=== PATIENT | male | born 1965 | race Hispanic/Latino ===

== ENCOUNTER 2018-01-20 08:54 | Emergency (ER) | payer OTHER ==
[2018-01-20 09:13] VITALS: RESP 18; O2SAT 97
--- NOTE | 2018-01-20 09:41 | ED PDOC ---
Arrival/HPI - General Chief Complaint: Abnormal Skin Integrity Time Seen by Provider: 01/20/18 09:40 Historian: Patient - History of Present Illness Narrative History of Present Illness (Text): 01/20/18 09:19 A 52 year old male, whose past medical history includes hypertension. hyperlipidemia, and sleep apnea, presents to the emergency department complaining of left foot bleeding since this morning. Patient reports he was showering when he notices his left foot suddenly bleeding and the bleeding would not stop. Patient notes left foot was sore and felt some pain to touch prior to bleeding. Patient denies any fever, chills, shortness of breath, chest pain, diarrhea, nausea, vomiting, urinary symptoms, back pain, neck pain , headache, dizziness, or any other complaints. Time/Duration: 4-6 hours (earlier this morning) Symptom Onset: Sudden Activities at Onset: Light Context: Home Past Medical History - Provider Review Nursing Documentation Reviewed: Yes - Cardiac Hx Hypertension: Yes - Pulmonary Hx Respiratory Disorders: No Hx Sleep Apnea: Yes - Neurological Hx Neurological Disorder: Yes Other/Comment: Cyst in the Brain - HEENT Hx HEENT Disorder: No - Endocrine/Metabolic Hx Endocrine Disorders: Yes Hx Diabetes Mellitus Type 2: Yes - Integumentary Other/Comment: Melanoma (Right Chest Wall Region) - Removed. - Psychiatric Hx Substance Use: No - Surgical History Other/Comment: Hernia Repair x2 1997 and 2014. Brain Cyst Removal 2004. Family/Social History - Physician Review Nursing Documentation Reviewed: Yes Family/Social History: Unknown Family HX Smoking Status: Heavy Smoker > 10 Cigarettes Daily Hx Alcohol Use: No Hx Substance Use: No Allergies/Home Meds Allergies/Adverse Reactions: Allergies No Known Allergies Allergy (Verified 01/20/18 09:04) Home Medications: Home Meds Medication Instructions Recorded Confirmed Aspirin [Aspirin EC] 325 mg PO DAILY 01/20/18 01/20/18 Furosemide [Lasix] 20 mg PO DAILY 01/20/18 01/20/18 Multivit-Mins/Iron/Folic/Lycop 1 each PO DAILY 01/20/18 01/20/18 [Centrum Men's Tablet] Review of Systems - Physician Review All systems were reviewed & negative as marked: Yes - Review of Systems Constitutional: absent: Fevers, Night Sweats Respiratory: absent: SOB Cardiovascular: absent: Chest Pain Gastrointestinal: absent: Diarrhea, Nausea, Vomiting Genitourinary Male: absent: Urinary Output Changes Musculoskeletal: absent: Back Pain, Neck Pain Skin: Other (+left foot inury). absent: Rash, Pruritis, Skin Lesions, Laceration, Abscess, Ulcer, Cellulitis Neurological: absent: Headache, Dizziness Physical Exam Vital Signs Reviewed: Yes Vital Signs Temp Pulse Resp BP Pulse Ox 01/20/18 10:18 98.0 F 95 H 18 134/84 01/20/18 10:01 98.5 F 96 H 18 131/63 97 01/20/18 09:06 98.5 F 96 H 18 131/63 97 Temperature: Afebrile Blood Pressure: Normal Pulse: Tachycardic Respiratory Rate: Normal Appearance: Positive for: Well-Appearing, Non-Toxic, Comfortable Pain Distress: None Mental Status: Positive for: Alert and Oriented X 3 - Systems Exam Head: Present: Atraumatic, Normocephalic Pupils: Present: PERRL Extroacular Muscles: Present: EOMI Conjunctiva: Present: Normal Mouth: Present: Moist Mucous Membranes Neck: Present: Normal Range of Motion Respiratory/Chest: Present: Clear to Auscultation, Good Air Exchange. No: Respiratory Distress, Accessory Muscle Use Cardiovascular: Present: Regular Rate and Rhythm, Normal S1, S2. No: Murmurs Abdomen: No: Tenderness, Distention, Peritoneal Signs Back: Present: Normal Inspection Upper Extremity: Present: Normal Inspection. No: Cyanosis, Edema Lower Extremity: Present: NORMAL PULSES, Other (no active bleeding in left foot - multiple varicose veins noted). No: Normal Inspection, Edema, CALF TENDERNESS , Cyanosis, Normal ROM, Brian's Sign, Tenderness, Swelling, Erythema, Deformity , Temperature Abnormalties, Neurovascularly Intact, Capillary Refill < 2 s Neurological: Present: GCS=15, CN II-XII Intact, Speech Normal Skin: Present: Warm, Dry, Normal Color. No: Rashes Psychiatric: Present: Alert, Oriented x 3, Normal Insight, Normal Concentration Medical Decision Making ED Course and Treatment: 01/20/18 09:23 Impression: 52 year old male presents to the emergency department complaining of left foot bleeding. Plan: -- Reassess and disposition Progress Notes: 01/20/18 10:15 Upon reassessment, patient's foot has no active bleeding. Multimle varicose veins noted on feet, likely this was the source of bleeding. Patient will be cleared and prepared for discharge. - Scribe Statement The provider has reviewed the documentation as recorded by the Alexibe Liberty Skinner All medical record entries made by the Scribe were at my direction and personally dictated by me. I have reviewed the chart and agree that the record accurately reflects my personal performance of the history, physical exam, medical decision making, and the department course for this patient. I have also personally directed, reviewed, and agree with the discharge instructions and disposition. Disposition/Present on Arrival - Present on Arrival Any Indicators Present on Arrival: No History of DVT/PE: No History of Uncontrolled Diabetes: No Urinary Catheter: No History of Decub. Ulcer: No History Surgical Site Infection Following: None - Disposition Have Diagnosis and Disposition been Completed?: Yes Diagnosis: Bleeding from varicose veins of left lower extremity Disposition: HOME/ ROUTINE Disposition Time: 10:35 Condition: FAIR Discharge Instructions (ExitCare): Treatment of Varicose Veins of the Leg Additional Instructions: QUINN JOHNSON, thank you for letting us take care of you today. Your provider was Elizabeth Perla MD and you were treated for (L) FOOT INJURY. The emergency medical care you received today was directed at your acute symptoms. If you were prescribed any medication, please fill it and take as directed. It may take several days for your symptoms to resolve. Return to the Emergency Department if your symptoms worsen, do not improve, or if you have any other problems. Please contact your doctor or call one of the physicians/clinics you have been referred to that are listed on the Patient Visit Information form that is included in your discharge packet. Bring any paperwork you were given at discharge with you along with any medications you are taking to your follow up visit. Our treatment cannot replace ongoing medical care by a primary care provider outside of the emergency department. Thank you for allowing the [facility] team to be part of your care today. If you had an X-Ray or CT scan: A Radiologist will review the ED reading if any change in treatment is needed we will contact you. If you had a blood, urine, or wound culture: It will take several days for the results, if any change in treatment is needed we will contact you. If you had an STI test: It will take 48 hours for the results. Please call after 1 week if you have not heard back. Forms: [facility] ([place]ican), WORK NOTE
[2018-01-20 10:35] VITALS: BP 134/84; PULSE 95; TEMP 98
== END 2018-01-20 10:18 | disposition home or self-care (01) ==
LOC: ED 08:54
DX: I83.892 Varicose veins of left lower extremity with other complications (principal); E11.9 Type 2 diabetes mellitus without complications; E78.5 Hyperlipidemia, unspecified; I10 Essential (primary) hypertension; F17.210 Nicotine dependence, cigarettes, uncomplicated